=== PATIENT | male | born 1995 | race African-American/Black ===

== ENCOUNTER 2019-05-28 10:51 | Emergency (ER) | payer SELFPAY ==
[2019-05-28] MEDS ORDERED: AZITHROMYCIN 250 MG TAB ONE (11:45)
[2019-05-28] MEDS ORDERED: CEFTRIAXONE 250 MG/VIAL ONE (11:45)
[2019-05-28] MEDS ORDERED: LIDOCAINE 1% MPF 2 ML AMPULE ONE (11:45)
[2019-05-28 12:20] LABS: Urine Bacteria <20 /HPF (NONE SEEN); Urine Culture Reflex Order REFLEXED; Urine Mucus 1+ /HPF (NONE SEEN)
--- NOTE | 2019-05-28 12:25 | ER ---
Nurse's Notes [facility] Name: Kath Mcdonald Age: 24 yrs Sex: Male : 1995 Arrival Date: 05/28/2019 Time: 10:52 Bed 17 Private MD: Diagnosis: Urinary tract infection, site not specified;Unspecified sexually transmitted disease Presentation: 05/28 11:13 Presenting complaint: Patient states: Burning and pain with urination and penile jl7 discharge x 2 days. Transition of care: patient was not received from another setting of care. Onset of symptoms was May 26, 2019. Risk Assessment: Do you want to hurt yourself or someone else? Patient reports no desire to harm self or others. Initial Sepsis Screen: Does the patient meet any 2 criteria? No. Patient's initial sepsis screen is negative. Does the patient have a suspected source of infection? No. Patient's initial sepsis screen is negative. Care prior to arrival: None. 11:13 Method Of Arrival: Ambulatory [facility] 11:13 Acuity: ERICKSON 4 jl7 Historical: - Allergies: 11:14 No Known Allergies; jl7 - Home Meds: 11:14 None [Active]; jl7 - PMHx: 11:14 None; jl7 - PSHx: 11:14 None; jl7 - Immunization history:: Adult Immunizations not up to date. - Social history:: Smoking status: Patient uses tobacco products, smokes one pack cigarettes per day. Patient uses alcohol, weekly. street drugs, marijuana. - Ebola Screening: : No symptoms or risks identified at this time. Screenin:20 Abuse screen: Denies threats or abuse. Denies injuries from another. Nutritional ca1 screening: No deficits noted. Tuberculosis screening: No symptoms or risk factors identified. Fall Risk None identified. Assessment: 11:20 General: Appears in no apparent distress. comfortable, Behavior is calm, cooperative, ca1 appropriate for age. Pain: Complains of pain in pelvis Pain currently is 6 out of 10 on a pain scale. Pain began 1 day ago. Neuro: Level of Consciousness is awake, alert, obeys commands, Oriented to person, place, time, situation. : Reports burning with urination, discharge, from penis that is urgency, urinary frequency. Derm: Skin is intact, is healthy with good turgor, Skin is pink, warm \T\ dry. Musculoskeletal: Circulation, motion, and sensation intact. Capillary refill < 3 seconds, Range of motion: intact in all extremities. 12:19 Reassessment: Patient appears in no apparent distress at this time. Patient is alert, ca1 oriented x 3, equal unlabored respirations, skin warm/dry/pink. Vital Signs: 11:14 BP 128 / 78; Pulse 71; Resp 16 S; Temp 98.6(O); Pulse Ox 99% on R/A; Weight 81.65 kg jl7 (R); Height 6 ft. 1 in. (185.42 cm) (R); Pain 7/10; 12:19 BP 132 / 81; Pulse 68; Resp 17 S; Pulse Ox 99% on R/A; ca1 11:14 Body Mass Index 23.75 (81.65 kg, 185.42 cm) jl7 ED Course: 10:52 Patient arrived in ED. as 10:58 [facility]C [facility] kb 10:58 Tim Cummings MD is Attending Physician. kb 11:13 Dmitry Ayers, SAIRA is Primary Nurse. jl7 11:14 Triage completed. jl7 11:14 Arm band placed on right wrist. EKG completed in triage. Results shown to MD. EKG jl7 completed in triage. Results shown to MD. 11:20 Patient has correct armband on for positive identification. Bed in low position. Call ca1 light in reach. Side rails up X 1. Pulse ox on. NIBP on. 11:20 No provider procedures requiring assistance completed. Patient did not have IV access ca1 during this emergency room visit. 11:22 Suzy Beltran, SAIRA is Primary Nurse. ca1 11:33 Urine collected: clean catch specimen, cloudy, willi colored. jb1 Administered Medications: 11:45 Drug: Zithromax 1 grams Route: PO; ca1 12:19 Follow up: Response: No adverse reaction ca1 11:50 Drug: Rocephin (cefTRIAXone) 250 mg Route: IM; Site: left gluteus; ca1 12:19 Follow up: Response: No adverse reaction ca1 Outcome: 12:24 Discharge ordered by . kb 12:35 Discharged to home ambulatory, with significant other. ca1 12:35 Condition: stable 12:35 Discharge instructions given to patient, Instructed on discharge instructions, follow up and referral plans. medication usage, safe sex practices, Demonstrated understanding of instructions, follow-up care, medications, Prescriptions given X 1. 12:35 Patient left the ED. ca1 Signatures: Lele Lugo Kristin, RADHA AGUERO-Ivet Lam Jahala, RN RN jl7 Suzy Beltran RN RN ca1
--- NOTE | 2019-05-28 12:25 | EDPHYS ---
Physician Documentation [facility] Name: Kath Mcdonald Age: 24 yrs Sex: Male : 1995 Arrival Date: 05/28/2019 Time: 10:52 Bed 17 Private MD: ED Physician Tim Cummings HPI: 05/28 12:01 This 24 yrs old Black Male presents to ER via Ambulatory with complaints of Urinary kb Problem. 12:01 The patient presents with symptoms include green penile discharge, yellow penile kb discharge, urinary symptoms, dysuria. Onset: The symptoms/episode began/occurred 3 day(s) ago. Modifying factors: The symptoms are alleviated by nothing, the symptoms are aggravated by urinating. Associated signs and symptoms: Pertinent positives: dysuria, Pertinent negatives: abdominal pain, constipation, diarrhea, fever, hematuria, nausea, vomiting. Severity of symptoms: At their worst the symptoms were moderate, in the emergency department the symptoms are unchanged. The patient has not experienced similar symptoms in the past. The patient has not recently seen a physician. Historical: - Allergies: 11:14 No Known Allergies; jl7 - Home Meds: 11:14 None [Active]; jl7 - PMHx: 11:14 None; jl7 - PSHx: 11:14 None; jl7 - Immunization history:: Adult Immunizations not up to date. - Social history:: Smoking status: Patient uses tobacco products, smokes one pack cigarettes per day. Patient uses alcohol, weekly. street drugs, marijuana. - Ebola Screening: : No symptoms or risks identified at this time. ROS: 12:00 Constitutional: Negative for fever, chills, and weight loss, Neck: Negative for injury, kb pain, and swelling, Cardiovascular: Negative for chest pain, palpitations, and edema, Respiratory: Negative for shortness of breath, cough, wheezing, and pleuritic chest pain, Abdomen/GI: Negative for abdominal pain, nausea, vomiting, diarrhea, and constipation, Back: Negative for injury and pain, MS/Extremity: Negative for injury and deformity, Skin: Negative for injury, rash, and discoloration, Neuro: Negative for headache, weakness, numbness, tingling, and seizure. 12:00 : Positive for urinary symptoms, burning with urination, penile discharge. Exam: 12:00 Constitutional: This is a well developed, well nourished patient who is awake, alert, kb and in no acute distress. Head/Face: Normocephalic, atraumatic. ENT: Nares patent. No nasal discharge, no septal abnormalities noted. Tympanic membranes are normal and external auditory canals are clear. Oropharynx with no redness, swelling, or masses, exudates, or evidence of obstruction, uvula midline. Mucous membranes moist. Neck: Trachea midline, no thyromegaly or masses palpated, and no cervical lymphadenopathy. Supple, full range of motion without nuchal rigidity, or vertebral point tenderness. No Meningismus. Chest/axilla: Normal chest wall appearance and motion. Nontender with no deformity. No lesions are appreciated. Cardiovascular: Regular rate and rhythm with a normal S1 and S2. No gallops, murmurs, or rubs. Normal PMI, no JVD. No pulse deficits. Respiratory: Lungs have equal breath sounds bilaterally, clear to auscultation and percussion. No rales, rhonchi or wheezes noted. No increased work of breathing, no retractions or nasal flaring. Abdomen/GI: Soft, non-tender, with normal bowel sounds. No distension or tympany. No guarding or rebound. No evidence of tenderness throughout. Back: No spinal tenderness. No costovertebral tenderness. Full range of motion. Skin: Warm, dry with normal turgor. Normal color with no rashes, no lesions, and no evidence of cellulitis. MS/ Extremity: Pulses equal, no cyanosis. Neurovascular intact. Full, normal range of motion. Neuro: Awake and alert, GCS 15, oriented to person, place, time, and situation. Cranial nerves II-XII grossly intact. Motor strength 5/5 in all extremities. Sensory grossly intact. Cerebellar exam normal. Normal gait. Vital Signs: 11:14 BP 128 / 78; Pulse 71; Resp 16 S; Temp 98.6(O); Pulse Ox 99% on R/A; Weight 81.65 kg 7 (R); Height 6 ft. 1 in. (185.42 cm) (R); Pain 7/10; 12:19 BP 132 / 81; Pulse 68; Resp 17 S; Pulse Ox 99% on R/A; ca1 11:14 Body Mass Index 23.75 (81.65 kg, 185.42 cm) [facility] MDM: 11:18 Patient medically screened. kb 12:00 Data reviewed: vital signs, nurses notes. Data interpreted: Pulse oximetry: on room air kb is 99 %. Interpretation: normal. 12:23 Counseling: I had a detailed discussion with the patient and/or guardian regarding: the kb historical points, exam findings, and any diagnostic results supporting the discharge/admit diagnosis, lab results, the need for outpatient follow up, a family practitioner, to return to the emergency department if symptoms worsen or persist or if there are any questions or concerns that arise at home. 05/28 11:19 Order name: Urine Microscopic Only; Complete Time: 12:22 kb 05/28 11:19 Order name: Urine Dipstick-Ancillary (obtain specimen); Complete Time: 11:32 kb Administered Medications: 11:45 Drug: Zithromax 1 grams Route: PO; ca1 12:19 Follow up: Response: No adverse reaction ca1 11:50 Drug: Rocephin (cefTRIAXone) 250 mg Route: IM; Site: left gluteus; ca1 12:19 Follow up: Response: No adverse reaction ca1 Disposition: 12:43 Co-signature as Attending Physician, Tim Cummings MD. rn Disposition: 05/28/19 12:24 Discharged to Home. Impression: Urinary tract infection, site not specified, Unspecified sexually transmitted disease. - Condition is Stable. - Discharge Instructions: Sexually Transmitted Disease, [id number], Urinary Tract Infection, Adult, [id number]. - Prescriptions for Doxycycline Hyclate 100 mg Oral Tablet - take 1 tablet by ORAL route every 12 hours; 20 tablet. - Medication Reconciliation Form, Thank You Letter, Antibiotic Education, Prescription Opioid Use form. - Follow up: Emergency Department; When: As needed; Reason: Worsening of condition. Follow up: Private Physician; When: 2 - 3 days; Reason: Recheck today's complaints, Continuance of care, Re-evaluation by your physician. Signatures: Dispatcher [employer] Sena Durant FNP-C FNP-Tim Olson MD MD rn Leal, Jahala, RN RN jl7 Suzy Beltran RN RN ca1 Corrections: (The following items were deleted from the chart) 12:35 12:24 05/28/2019 12:24 Discharged to Home. Impression: Urinary tract infection, site ca1 not specified; Unspecified sexually transmitted disease. Condition is Stable. Forms are Medication Reconciliation Form, Thank You Letter, Antibiotic Education, Prescription Opioid Use. Follow up: Emergency Department; When: As needed; Reason: Worsening of condition. Follow up: Private Physician; When: 2 - 3 days; Reason: Recheck today's complaints, Continuance of care, Re-evaluation by your physician. kb
[2019-05-28 13:08] VITALS: TEMP 98.6; O2SAT 99
[2019-05-28 13:10] VITALS: BP 132/81
== END 2019-05-28 12:35 | disposition home or self-care (01) ==
LOC: ER 10:51
DX: N39.0 Urinary tract infection, site not specified (principal); A64 Unspecified sexually transmitted disease; F17.210 Nicotine dependence, cigarettes, uncomplicated
CPT/HCPCS: 81015; 87086; 87088; 96372; 99284; J0696; J2001